=== PATIENT | male | born 2005 | race Caucasian/White ===

== ENCOUNTER → 2025-08-24 | Outpatient (CLI) | payer OTHER, SELFPAY ==
--- NOTE | 2025-08-24 16:15 | XR_ITS ---
EXAMINATION: Testicular sonography complete TECHNIQUE: Grayscale sonographic images testes, assessment arterial inflow and venous outflow Doppler spectral analysis color flow analysis Date and time: August 24, 2025, 1620 hours INDICATIONS: Palpable lump in the left testicle 2 years FINDINGS: Right testis 4.2 cm epididymis 11 mm 3 mm epididymal cyst. Arterial flow to the testicle No testicular mass Mild hydrocele Left testis 4.2 cm epididymis 14 mm Left epididymal cyst 9 x 7 mm Arterial flow the testicle. No testicular mass Mild hydrocele IMPRESSION: No testicular torsion or testicular mass Bilateral benign epididymal cysts, the largest on the left side 9 x 5 x 7 mm
== END | disposition home or self-care (01) ==
PROVIDERS: PCP Internal Medicine; Referring Provider Internal Medicine; Visit Provider Internal Medicine
DX: N50.3 Cyst of epididymis (principal)
CPT/HCPCS: 76870